=== PATIENT | male | born 1960 | race Caucasian/White ===

== ENCOUNTER 2018-04-03 07:47 | Day surgery (SDC) | payer OTHER ==
[~2018-04-03 07:47] MED LIST: PROPOFOL INJ 200 MG/20 ML VIAL IV ONE
[2018-04-03 09:10] VITALS: BP 110/80
--- NOTE | 2018-04-03 12:26 | Operative Report ---
Operative Report DATE OF SURGERY: 04/03/18 Operative Report: The risks, benefits and alternatives of the procedure including risks of bleeding, perforation requiring surgery are explained to the patient in detail and informed consent is obtained. Patient is brought back to the endoscopy suite and placed in the left, lateral decubital position. Timeout was called. Propofol medications administered. A rectal examination is done which did not reveal any masses, tears or fissures. An Olympus videoscope was inserted into the patient's rectum. The scope was then carefully advanced all the way to the anastomotic site. Prep is good. The scope was then sequentially pulled back through the distal segments of the colon. Retroflexion maneuvers performed. PREOPERATIVE DIAGNOSIS: Rectal bleeding. Personal history of colon cancer status post resection POSTOPERATIVE DIAGNOSIS: Internal hemorrhoids. Mild inflammation noted at the anastomotic site status post biopsy OPERATION: Colonoscopy with biopsy SURGEON: MIKAEL VILLANUEVA ANESTHESIA: LMAC TISSUE REMOVED OR ALTERED: As noted above. COMPLICATIONS: None. ESTIMATED BLOOD LOSS: None. INTRAOPERATIVE FINDINGS: As noted above. PROCEDURE: Patient tolerated the procedure well. No immediate postprocedure complications are noted. Patient discharged in good condition. Discharge date 04/03/2018. Discharge diet: Regular. Discharge activity: Regular. 2-3 week follow-up to discuss findings. Patient is instructed to call the office should there be any further problems or questions. Wait on pathology. 3-5 year surveillance colonoscopy.
== END 2018-04-03 09:06 | disposition home or self-care (01) ==
LOC: END 07:47
PROVIDERS: ATTEND Internal Medicine Gastroenterology
DX: K92.1 Melena (principal); K64.8 Other hemorrhoids; K52.9 Noninfective gastroenteritis and colitis, unspecified; G47.30 Sleep apnea, unspecified; Z85.038 Personal history of other malignant neoplasm of large intestine; Z90.49 Acquired absence of other specified parts of digestive tract
CPT/HCPCS: 45380; 88305 ×2; J2704; 811

== ENCOUNTER 2018-09-24 10:28 | Emergency (ER) | payer OTHER ==
[2018-09-24] MEDS ORDERED: IBUPROFEN 800 MG TABLET PO ONE (11:06)
[2018-09-24] MEDS ORDERED: PREDNISONE 20 MG TABLET PO ONE (11:06)
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
[2018-09-24 12:32] VITALS: BP 110/73
== END 2018-09-24 12:35 | disposition home or self-care (01) ==
LOC: ER 10:28
DX: S16.1XXA Strain of muscle, fascia and tendon at neck level, initial encounter (principal); M54.42 Lumbago with sciatica, left side; M54.2 Cervicalgia; M54.9 Dorsalgia, unspecified; M54.6 Pain in thoracic spine; V87.7XXA Person injured in collision between other specified motor vehicles (traffic), initial encounter; Z87.891 Personal history of nicotine dependence
CPT/HCPCS: 99284; 72110; 72070; J7512